=== PATIENT | male | born 1990 | race Caucasian/White ===

== ENCOUNTER 2017-05-09 16:29 | Emergency (ER) | payer SELFPAY | END 2017-05-09 18:38 | disposition left against medical advice (07) | LOC: FTE 16:29 | DX: Z53.21 Procedure and treatment not carried out due to patient leaving prior to being seen by health care provider (principal) ==

== ENCOUNTER 2017-05-11 09:06 | Emergency (ER) | payer SELFPAY ==
[2017-05-11] MEDS: LIDOCAINE/MYLANTA 40 ML BTL PO (10:46)
[2017-05-11] MEDS: ONDANSETRON (ODT) 4 MG TAB ODT (10:46)
[2017-05-11 10:50] LABS: URINE BLOOD (Dip) POC Negative (NEGATIVE); URINE GLUCOSE (Dip) POC Negative (NEGATIVE); URINE KETONES (Dip) POC Negative (NEGATIVE); URINE LEUKOCYTE EST (Dip) POC Negative (NEGATIVE); URINE NITRITE (Dip) POC Negative (NEGATIVE); URINE TOTAL PROTEIN POC Trace (NEGATIVE)
[2017-05-11 10:50] LABS: URINE PH (Dip) POC 6.5 (5.0-8.5)
== END 2017-05-11 12:17 | disposition home or self-care (01) ==
LOC: FTE 09:06
DX: A08.4 Viral intestinal infection, unspecified (principal)
CPT/HCPCS: 81003; 99283